=== PATIENT | male | born 1945 ===

== ENCOUNTER 2018-10-12 08:04 | Day surgery (SDC) | payer MEDICARE ==
[2018-10-05 10:44] VITALS: BMI 29.4
[~2018-10-12 08:04] MED LIST: Carbachol 0.01% IO ONE; Chondroitin/Hyaluronate Opth Syringe KIT (0.55 ml-0.5 ml) IO ONE; Ciprofloxacin 0.3% OPTH SOLN OS SCH; Hyaluronidase Human, Recombi 150 U/ML VIAL ONE; Ketorolac Tromethamine 0.5% Opth Soln (3 ml) OS SCH; Lactated Ringer's 500 ML IV ONE; Lidocaine 2% MPF (5 ml) Inj ONE; Phenylephrine 2.5% Opht Soln OS SCH; Povidone Iodine Ophthalmic 5% Soln ONE; Tetracaine 0.5% Ophth (OR ONLY) ONE; Tropicamide 0.5% Opht Sol OS SCH; acetaZOLAMIDE 500 mg SR Cap PO ONE
[2018-10-12] MEDS ORDERED: Tropicamide 1% Opht SOLUTION OS ONE (08:45)
[2018-10-12] MEDS ORDERED: Lactated Ringer's 500 ML IV ONE (09:30)
[2018-10-12 09:44] VITALS: RESP 18; O2SAT 96
[2018-10-12] MEDS ORDERED: Midazolam 2 MG/2 ML VIAL ONE (10:25)
[2018-10-12] MEDS: Tobramycin/Dexamethasone OPHT OINT ONE ×2 (11:26→11:40)
[2018-10-12] MEDS ORDERED: Chondroitin/Hyaluronate 40 mg/ml-30 mg/ml Ophth Syringe (0.5 ml) IO ONE (11:26)
[2018-10-12 12:06] VITALS: BP 140/60; PULSE 55; TEMP 97
[2018-10-12] MEDS ORDERED: acetaZOLAMIDE 500 mg SR Cap PO ONE (12:30)
--- NOTE | 2018-10-12 22:08 | OP ---
PROCEDURE DATE: 10/12/2018 PREOPERATIVE DIAGNOSIS: Hypermature cataract and pupillary miosis, left eye. POSTOPERATIVE DIAGNOSIS: Hypermature cataract and pupillary miosis, left eye. PROCEDURE: Phacoemulsification, insertion of lens implant, left eye with utilization of capsular dye and Malyugin capsular ring. SURGEON: Brian Aviles MD. CO-SURGEON: Johann Raines MD. ANESTHESIA: Local intravenous sedation. DESCRIPTION OF PROCEDURE: The patient was brought into the operating room, placed in supine position, prepped and draped in the usual fashion for ophthalmic surgery. Lid speculum was inserted, lids and exposing globe. On inspection, there was noted to be a hypermature cataract with 2 mm pupil. A side-port incision was made superiorly and inferiorly with a disposable sharp blade. An air bubble was injected in the anterior chamber followed by capsular dye and then Viscoat was injected in the anterior chamber to deepen the chamber with resultant of 4 mm pupil. A near clear temporal corneal keratome incision was made with a 2.4-mm blade. A capsular tension ring was then inserted in the anterior chamber to dilate the pupil to 7 mm. Capsulorrhexis was performed with Utrata forceps. Hydrodissection carried out with balanced salt solution. Nucleus was ten phacoemulsified. Remaining cortical fragments were removed with a split irrigation and aspiration system. The capsular sac was filled with Provisc. A posterior chamber lens was then inserted into the capsular sac and rotated into horizontal position. The Provisc was aspirated out of the anterior chamber. The pupil was constricted with Miochol. Balanced salt solution was then used to hydrate all three wounds. The wounds were found to be watertight. Topical Timoptic, Betadine, TobraDex ointment were then applied. Pressure patch applied. The patient tolerated the procedure well. Brian Aviles MD
== END 2018-10-12 12:49 | disposition home or self-care (01) ==
LOC: C.SDS 08:04
PROVIDERS: ATTEND Ophthalmology
DX: H25.22 Age-related cataract, morgagnian type, left eye (principal); H57.03 Miosis
CPT/HCPCS: 66982; 82948; J2250; J3010; J3470; J7120